=== PATIENT | female | born 1965 | race Caucasian/White ===

== ENCOUNTER 2018-07-13 11:41 | Emergency (ER) | payer OTHER, SELFPAY ==
[2018-07-13 11:58] VITALS: BP 138/79; PULSE 75; RESP 20; TEMP 36.6; O2SAT 95; BMI 37.8
--- NOTE | 2018-07-13 12:16 | HMH.EDUTC ---
[facility] [place] Disposition Clinical Impression: Acute bronchitis Qualifiers: Bronchitis organism: unspecified organism Qualified Code(s): J20.9 - Acute bronchitis, unspecified Disposition: Home, Self-Care Condition on Discharge: Good Instructions: DI for Acute Bronchitis, Acute Bronchitis, Acute Bronchitis (Alternative Therapy), Azithromycin, Prednisone, Albuterol Oral Inhalation Additional Instructions: ? Start antibiotic today. Be sure to complete entire prescription even if feeling better ? Monitor temp. Tylenol every 4 hours as needed and / or ibuprofen every 6 hours as needed ( As long as your primary care physician has told you that it ok to take both. For fever/aches/pains ER if no less than 101 despite Tylenol or Motrin ? Humidifier/vaporizer or hot steamy shower ? Inhaler every 4-6 hours as needed like we discussed. If unsure how to use it, ask pharmacist to demonstrate how. Should help open airways and improve cough, wheezing, and shortness of breath ? *Tessalon Perles will not cause drowsiness but use at bedtime to help stop cough so that you may get some rest. *Start steroid today. Helps with inflammation therefore, cough and wheezing. Follow directions on the package. Reviewed side effects. Patient reports taking them before. Follow up IMMEDIATELY for new or worsening of symptoms OR no noticeable improvement over the next 48-72 hours. 911 immediately for any life threatening symptoms such as chest pain or difficulty breathing Prescriptions: Albuterol Sulfate [Albuterol HFA Inhaler] 2 puffs IH Q6HP PRN #1 inh PRN Reason: Shortness Of Breath Or Wheezing predniSONE [Prednisone 20mg Tab] 20 mg PO BID #10 tab Benzonatate [Tessalon Perle 100mg Cap] 100 mg PO TID PRN #30 cap PRN Reason: Cough Azithromycin [Z-Estuardo 250mg Tab] 250 mg PO UD DOSE PK #6 tab Referrals: Dennis Sands II [Primary Care Provider] - As needed Time of Disposition: 12:25 Medical Decision Making - Osvaldo Inquiry Pt receiving controlled substance: No Osvaldo was queried for this patient: No Vital Signs: 07/13/18 11:58 Temperature 98 F Temperature Source Oral Pulse Rate [Right Brachial] 75 Respiratory Rate 20 Blood Pressure [Right Arm] 138/79 Blood Pressure Mean [Right Arm] 98 Blood Pressure Source [Right Arm] Automatic Cuff Blood Pressure Position [Right Arm] Sitting 02 Sat by Pulse Oximetry 95 Oxygen Delivery Method Room Air - Lab Data Lab results reviewed: Yes: I reviewed the patient's lab results. [facility] [place] HPI - General Stated complaint: SOA sore throat ears hurt Time Seen by Provider: 07/13/18 12:16 Mode of Arrival: Family Vehicle Source of Information: Patient Limitations: No Limitations Description of Symptoms (Recalled from Triage Doc. by RN): c/o bronchitis,sore throat, ears hurting and cough x 1 week HEENT Symptoms (Recalled from RN notes): Yes Resp Symptoms (Recalled from RN notes): Yes Skin Symptoms (Recalled from RN notes): No MS Symptoms (Recalled from RN notes): No Functional Status (Recalled from RN notes): n/a - History of Present Illness Provider Complaint: Patient state that she thinks she has bronchitis States that she has been having cough, sore throat pressure and pain in both ears and feeling like she has drainage in the back of her throat State that she gets bronchitis about this time every year States that she hasn't had a fever that she is aware of and denies SOA - Related Data Home Medications Medication Instructions Recorded Confirmed Carvedilol [Carvedilol 6.25mg Tab] 6.25 mg PO BID 07/13/18 07/13/18 Ramipril 5 mg PO DAILY 07/13/18 07/13/18 Previous Rx's Medication Instructions Recorded Albuterol Sulfate [Albuterol HFA 2 puffs IH Q6HP PRN #1 inh 07/13/18 Inhaler] Azithromycin [Z-Estuardo 250mg Tab] 250 mg PO UD DOSE PK #6 tab 07/13/18 Benzonatate [Tessalon Perle 100mg 100 mg PO TID PRN #30 cap 07/13/18 Cap] predniSONE [Prednisone 20mg 20 mg PO BID #10 tab 07/13/18 Tab] A
--- NOTE | 2018-07-13 12:19 | ED_ITS ---
[facility] [place] Clinical Impression: Acute bronchitis Qualifiers: Bronchitis organism: unspecified organism Qualified Code(s): J20.9 - Acute bronchitis, unspecified Disposition: Home, Self-Care Condition on Discharge: Good Instructions: DI for Acute Bronchitis, Acute Bronchitis, Acute Bronchitis (Alternative Therapy), Azithromycin, Prednisone, Albuterol Oral Inhalation Additional Instructions: ? Start antibiotic today. Be sure to complete entire prescription even if feeling better ? Monitor temp. Tylenol every 4 hours as needed and / or ibuprofen every 6 hours as needed ( As long as your primary care physician has told you that it ok to take both. For fever/aches/pains ER if no less than 101 despite Tylenol or Motrin ? Humidifier/vaporizer or hot steamy shower ? Inhaler every 4-6 hours as needed like we discussed. If unsure how to use it, ask pharmacist to demonstrate how. Should help open airways and improve cough, wheezing, and shortness of breath ? *Tessalon Perles will not cause drowsiness but use at bedtime to help stop cough so that you may get some rest. *Start steroid today. Helps with inflammation therefore, cough and wheezing. Follow directions on the package. Reviewed side effects. Patient reports taking them before. Follow up IMMEDIATELY for new or worsening of symptoms OR no noticeable improvement over the next 48-72 hours. 911 immediately for any life threatening symptoms such as chest pain or difficulty breathing Prescriptions: Albuterol Sulfate [Albuterol HFA Inhaler] 2 puffs IH Q6HP PRN #1 inh PRN Reason: Shortness Of Breath Or Wheezing predniSONE [Prednisone 20mg Tab] 20 mg PO BID #10 tab Benzonatate [Tessalon Perle 100mg Cap] 100 mg PO TID PRN #30 cap PRN Reason: Cough Azithromycin [Z-Estuardo 250mg Tab] 250 mg PO UD DOSE PK #6 tab Referrals: Dennis Sands II [Primary Care Provider] - As needed Time of Disposition: 12:25 Medical Decision Making - Osvaldo Inquiry Pt receiving controlled substance: No Osvaldo was queried for this patient: No Vital Signs: 07/13/18 11:58 Temperature 98 F Temperature Source Oral Pulse Rate [Right Brachial] 75 Respiratory Rate 20 Blood Pressure [Right Arm] 138/79 Blood Pressure Mean [Right Arm] 98 Blood Pressure Source [Right Arm] Automatic Cuff Blood Pressure Position [Right Arm] Sitting 02 Sat by Pulse Oximetry 95 Oxygen Delivery Method Room Air - Lab Data Lab results reviewed: Yes: I reviewed the patient's lab results. [facility] [place] - General Stated complaint: SOA sore throat ears hurt Time Seen by Provider: 07/13/18 12:16 Mode of Arrival: Family Vehicle Source of Information: Patient Limitations: No Limitations Description of Symptoms (Recalled from Triage Doc. by RN): c/o bronchitis,sore throat, ears hurting and cough x 1 week HEENT Symptoms (Recalled from RN notes): Yes Resp Symptoms (Recalled from RN notes): Yes Skin Symptoms (Recalled from RN notes): No MS Symptoms (Recalled from RN notes): No Functional Status (Recalled from RN notes): n/a - History of Present Illness Provider Complaint: Patient state that she thinks she has bronchitis States that she has been having cough, sore throat pressure and pain in both ears and feeling like she has drainage in the back of her throat State that she gets bron chitis about this time every year States that she hasn't had a fever that she is aware of and denies SOA - Related Data H
[2018-07-13 12:30] VITALS: BP 138/79; PULSE 75; RESP 20; TEMP 36.6; O2SAT 95
[2018-07-13 12:57] LABS: UTC Strep Screen (Rapid) Negative (Negative)
== END 2018-07-13 13:02 | disposition home or self-care (01) ==
PROVIDERS: Emergency Provider Nurse Practitioner; PCP Family Medicine
DX: J20.9 Acute bronchitis, unspecified (principal)
CPT/HCPCS: 87880; 99201